=== PATIENT | female | born 2000 | race Caucasian/White ===

== ENCOUNTER → 2020-07-02 08:47 | Outpatient (BNVA) | payer SELFPAY | PROVIDERS: PCP Pediatrics; Visit Provider Dietitian, Registered | DX: Z76.89 Persons encountering health services in other specified circumstances (principal) ==

== ENCOUNTER → 2020-07-06 11:06 | Outpatient (BNVA) | payer OTHER, SELFPAY | PROVIDERS: PCP Pediatrics; Referring Provider Pediatrics; Visit Provider Surgery | DX: Z76.89 Persons encountering health services in other specified circumstances (principal) ==

== ENCOUNTER → 2020-07-20 13:20 | Outpatient (BNVA) | payer OTHER, SELFPAY | PROVIDERS: PCP Pediatrics; Visit Provider Dietitian, Registered | DX: Z76.89 Persons encountering health services in other specified circumstances (principal) ==

== ENCOUNTER → 2020-08-25 08:30 | Outpatient (BNVA) | payer OTHER, SELFPAY | PROVIDERS: Visit Provider Dietitian, Registered | DX: Z76.89 Persons encountering health services in other specified circumstances (principal) ==

== ENCOUNTER → 2020-08-30 08:23 | Outpatient (BNVA) | payer OTHER, SELFPAY | PROVIDERS: PCP Pediatrics; Visit Provider Dietitian, Registered | DX: Z76.89 Persons encountering health services in other specified circumstances (principal) ==

== ENCOUNTER → 2020-09-13 08:12 | Outpatient (BNVA) | payer SELFPAY | PROVIDERS: PCP Pediatrics; Visit Provider Dietitian, Registered | DX: Z76.89 Persons encountering health services in other specified circumstances (principal) ==

== ENCOUNTER → 2020-09-27 08:18 | Outpatient (BNVA) | payer SELFPAY | PROVIDERS: PCP Pediatrics; Visit Provider Dietitian, Registered | DX: Z76.89 Persons encountering health services in other specified circumstances (principal) ==

== ENCOUNTER → 2020-10-11 08:18 | Outpatient (BNVA) | payer OTHER, SELFPAY | PROVIDERS: PCP Pediatrics; Visit Provider Physician Assistant ==

== ENCOUNTER → 2021-01-06 08:12 | Outpatient (BNVA) | payer OTHER, SELFPAY | PROVIDERS: PCP Pediatrics; Visit Provider Dietitian, Registered | DX: E66.9 Obesity, unspecified (principal); Z68.36 Body mass index [BMI] 36.0-36.9, adult | CPT/HCPCS: 97803 ==

== ENCOUNTER → 2021-01-20 08:15 | Outpatient (BNVA) | payer OTHER, SELFPAY | PROVIDERS: PCP Pediatrics; Visit Provider Dietitian, Registered | DX: E66.9 Obesity, unspecified (principal) | CPT/HCPCS: 97803 ==

== ENCOUNTER → 2021-02-28 13:03 | Outpatient (BNVA) | payer OTHER, SELFPAY | PROVIDERS: PCP Pediatrics; Visit Provider Physician Assistant ==

== ENCOUNTER → 2021-03-09 08:08 | Outpatient (BNVA) | payer OTHER, SELFPAY | PROVIDERS: PCP Pediatrics; Visit Provider Physician Assistant ==

== ENCOUNTER → 2021-03-24 10:20 | Outpatient (BNVA) | payer OTHER, SELFPAY | PROVIDERS: PCP Pediatrics; Referring Provider Pediatrics; Visit Provider Surgery ==

== ENCOUNTER → 2021-04-08 13:41 | Outpatient (BNVA) | payer OTHER, SELFPAY | PROVIDERS: PCP Pediatrics; Visit Provider Physician Assistant ==

== ENCOUNTER 2021-04-20 14:00 | Inpatient (IN) | payer OTHER, SELFPAY ==
[2021-04-07 14:36] VITALS: BMI 35.4
[2021-04-08 17:46] LABS: MANUAL DIFF FLAG NO
[2021-04-08 17:50] LABS: Basophils Absolute Auto 0.1 X10*3/uL (0.0-0.2); Basophils Percent Auto 0.8 % (0-2); Eosinophils Absolute Auto 0.4 X10*3/uL (0.0-0.4); Eosinophils Percent Auto 5.2 % (0-4); Hematocrit 40.9 % (37-47); Hemoglobin 13.4 g/dl (12.0-16.0); Imm Gran Abs Auto 0.02 X10*3/uL (0.00-0.03); Imm Gran Pct Auto 0.3 % (0.0-0.4); Lymphocytes Absolute Auto 1.9 X10*3/uL (1.2-4.9); Lymphocytes Percent Auto 24.9 % (20-40); Mean Corpuscular HGB Conc 32.8 g/dl (31.0-35.0); Mean Corpuscular Volume 88.5 fL (80-98); Mean Platelet Volume 12.2 fL (9.4-12.3); Monocytes Absolute Auto 0.6 X10*3/uL (0.1-1.2); Monocytes Percent Auto 7.5 % (2-11); Neutrophils Absolute Auto 4.6 X10*3/uL (2.0-8.3); Neutrophils Percent Auto 61.3 % (45-73); Platelet Count 228 X10*3/uL (160-400); Red Blood Count 4.62 X10*6/uL (4.20-5.50); Red Cell Distribution Width 12.9 % (11.0-16.0); White Blood Count 7.5 X10*3/uL (4.8-10.8)
[2021-04-08 18:15] LABS: Albumin Level 4.3 g/dL (3.5-5.0); Anion Gap 13 (12-20); Blood Urea Nitrogen 9 mg/dL (9-16); Calcium 9.6 mg/dL (8.4-10.2); Carbon Dioxide 23 mmol/L (22-29); Chloride 108 mmol/L (96-108); Creatinine Clr Calc Pharmacy 159.8; Estimated Glomerular Filt Rate > 60; Glucose Random 75 mg/dL (60-115); Potassium 4.1 mmol/L (3.3-5.1); Sodium 140 mmol/L (135-145)
--- NOTE | 2021-04-19 09:18 | P.CONAN_ITS ---
Documented by User: Abbie Jaelyn 04/19/21 09:23 HPI - Anesthesia Eval Consult details Narrative: 20yo F for Gastrectomy Sleeve, EGD, Poss Diaphragmatic Hernia, Poss Ventral Hernia, Poss open *Upper front teeth bonded* PMFSH Active Problems Active Problems: All Active Problems (Updated 04/08/21 @ 16:00 by Kayy Jauregui MD) Obesity (Acute) BMI 35.0-35.9,adult (Acute) Shortness of breath (Acute) Preoperative examination (Acute) Binge eating disorder (Acute) History of ADHD (Acute) Anxiety (Acute) Depression (Acute) Past Medical History Medical History Anxiety COVID-19 vaccine administered Depression History of Lyme disease Obesity (BMI 30-39.9) Sleep apnea Family History Family History Father HTN (hypertension) Sleep apnea Obese Mother Multiple sclerosis RA (rheumatoid arthritis) Brother No problems noted. Maternal Grandmother H/O lymph node biopsy Surgical History Surgical History H/O wisdom tooth extraction Social History Social History Household Members: Other Household Members Other:: roommate Are you a primary careers adviser to a significant other at home: No Do you presently have visiting nurse or other home services: No Alcohol intake: current Alcohol intake frequency: holidays/special occasions only Patient Tobacco Use Status: Former Tobacco user Quit Date: 03/10/21 Tobacco use type: Cigarette Years Smoked: 4 Substance Use Type: Marijuana Substance Use Frequency: Daily Last Used Substance Other:: advised to hold marijuana 3-5 days pre-op Have you been hit, kicked, punched, or otherwise hurt by someone within the past year? If so, by whom?: No Recently lost weight without trying: No Eating poorly because of decreased appetite: No Nutrition Risks: No Nutritional Risk Patient : No (taking BCP) FDLMP: 03/21/21 : No Visits dentist regularly: Yes (has upper front bonded teeth) Poor oral hygiene: No Meds Allergies Allergy/AdvReac Type Severity Reaction Status Date / Time latex Allergy Intermediate localized Verified 04/08/21 16:16 swelling (condom) Home Medications Medication Instructions Recorded Confirmed Last Taken Type bupropion HCl 150 mg 24 hr tablet, 150 mg PO QAM 07/06/20 04/08/21 04/20/21 07:15 History extended release drospirenone 3 mg-ethinyl 1 tab PO DAILY 07/06/20 04/08/21 Unknown History estradiol 0.02 mg tablet ibuprofen 600 mg tablet 600 mg PO Q6H PRN 07/06/20 04/08/21 Unknown History biotin 5,000 mcg sublingual tablet 5,000 mcg SUBLINGUAL DAILY 04/07/21 04/08/21 Unknown History cranberry 500 mg capsule 500 mg PO BID 04/07/21 04/08/21 Unknown History magnesium 1 tab PO DAILY 04/07/21 04/08/21 Unknown History Exam Exam Date and Time: April 19, 2021 0918 Height,Weight and Vital Signs: Height 5 ft 7 in Weight 102.693 kg Pertinent Lab Results Pertinent Lab Results: Laboratory Tests 04/08/21 04/08/21 04/08/21 16:25 16:25 16:25 WBC 7.5 RBC 4.62 Hgb 13.4 Hct 40.9 MCV 88.5 MCH 29.0 MCHC 32.8 RDW 12.9 Plt Count 228 MPV 12.2 Immature Gran % (Auto) 0.3 Neut % (Auto) 61.3 Lymph % (Auto) 24.9 Morrill % (Auto) 7.5 Eos % (Auto) 5.2 H Baso % (Auto) 0.8 Lymph # (Auto) 1.9 Morrill # (Auto) 0.6 Eos # (Auto) 0.4 Baso # (Auto) 0.1 Abs Immat Gran (auto) 0.02 Absolute Neuts (auto) 4.6 Absolute Nucleated RBC 0.000 Nucleated RBC % (auto) 0.0 Sodium 140 Potassium 4.1 Chloride 108 Carbon Dioxide 23 Anion Gap 13 BUN 9 Creatinine 0.68 Estim Creat Clear Calc 159.8 Estimated GFR > 60 Random Glucose 75 Calcium 9.6 Albumin 4.3 Blood Type O Positive Antibody Screen NEGATIVE Narrative Narrative: EKG 02/2021 SR with Marked SA @ 65 Otherwise normal No change from previous EKG 11/2020 Assessment and Plan Assessment Anesthesia Assessment: Chart Reviewed Documented by User: Stacy Pro 04/20/21 09:53 [facility] Past Medical History Medical History Anxiety COVID-19 vaccine administered Depression History of Lyme disease Obesity (BMI 30-39.9) Sleep apnea Family History Family History Father HTN (hypertension) Sleep apnea Obese Mother Multiple sclerosis RA (rheumatoid arthritis) Brother No problems noted. Maternal Grandmother H/O lymph node biopsy Surgical History Surgical History H/O wisdom tooth extraction Social History Social History Household Members: Other Household Members Other:: roommate Are you a primary careers adviser to a significant other at home: No Do you presently have visiting nurse or other home services: No Alcohol intake: current Alcohol intake frequency: holidays/special occasions only Patient Tobacco Use Status: Former Tobacco user Quit Date: 03/10/21 Tobacco use type: Cigarette Years Smoked: 4 Substance Use Type: Marijuana Substance Use Frequency: Daily Last Used Substance Other:: advised to hold marijuana 3-5 days pre-op Have you been hit, kicked, punched, or otherwise hurt by someone within the past year? If so, by whom?: No Recently lost weight without trying: No Eating poorly because of decreased appetite: No Nutrition Risks: No Nutritional Risk Patient : No (taking BCP) FDLMP: 03/21/21 : No Visits dentist regularly: Yes (has upper front bonded teeth) Poor oral hygiene: No Meds Allergies Allergy/AdvReac Type Severity Reaction Status Date / Time latex Allergy Intermediate localized Verified 04/08/21 16:16 swelling (condom) Home Medications Medication Instructions Recorded Confirmed Last Taken Type bupropion HCl 150 mg 24 hr tablet, 150 mg PO QAM 07/06/20 04/08/21 04/20/21 07:15 History extended release drospirenone 3 mg-ethinyl 1 tab PO DAILY 07/06/20 04/08/21 Unknown History estradiol 0.02 mg tablet ibuprofen 600 mg tablet 600 mg PO Q6H PRN 07/06/20 04/08/21 Unknown History biotin 5,000 mcg sublingual tablet 5,000 mcg SUBLINGUAL DAILY 04/07/21 04/08/21 Unknown History cranberry 500 mg capsule 500 mg PO BID 04/07/21 04/08/21 Unknown History magnesium 1 tab PO DAILY 04/07/21 04/08/21 Unknown History Exam Airway Mallampati Class: II TM Dist: >3cm Neck ROM: Full Loose/Missing/Broken Teeth: No Heart: RRR Lungs: CTA Assessment and Plan Final Anesthetic Review NPO: Yes ASA Class: II Final Preanesthetic Review: Meds/Allgs Chart Reviewed, Consent Obtained/Reviewed and Anes Risks/Benef Reviewed Patient Risk: Low Procedure Risk: Intermediate Anesthetic Plan Anesthetic Plan: GA Disposition: Standard PACU
--- NOTE | 2021-04-19 12:58 | MHC.SHP ---
Pre-Procedural Eval Section A Date of Service: 04/19/21 Section B Chief Complaint: Morbid Severe Obesity Allergies: Allergies Allergy/AdvReac Type Severity Reaction Status Date / Time latex Allergy Intermediate localized Verified 04/08/21 16:16 swelling (condom) Plan I have reviewed the history and physical and performed a pertinent physical examination on my patient. No changes have occurred unless specified.
[2021-04-20] VITALS (16 sets, daily range): BP systolic 92–143; BP diastolic 53–85; PULSE 50–82; RESP 14–18; TEMP 35.8–36.6; O2SAT 98–100
[2021-04-20 09:22] LABS: COVID-19 Test Negative (Negative)
[2021-04-20] MEDS: Lactated Ringers 1,000 ML 100 ML IVCONT (09:22)
--- NOTE | 2021-04-20 09:22 | PC.NURSE ---
URINE IS NEGATIVE PER PAPERWORK FROM 04/15/2021 [facility]. IN CHART
--- NOTE | 2021-04-20 09:29 | PC.NURSE ---
MD DEWITT AWARE OF PATIENTS HEART RATE DROPPING WHILE SHE SLEEPS AND BP. ASYMPTOMATIC.
--- NOTE | 2021-04-20 09:45 | P.CONAN_ITS ---
FORMERLY [facility] Active Problems Active Problems: All Active Problems (Updated 04/08/21 @ 16:00 by Kayy ramos MD) Obesity (Acute) BMI 35.0-35.9,adult (Acute) Shortness of breath (Acute) Preoperative examination (Acute) Binge eating disorder (Acute) History of ADHD (Acute) Anxiety (Acute) Depression (Acute) Past Medical History Medical History Anxiety COVID-19 vaccine administered Depression Hiatal hernia History of Lyme disease History of seizure Obesity (BMI 30-39.9) Sleep apnea Family History Family History Father HTN (hypertension) Sleep apnea Obese Mother Multiple sclerosis RA (rheumatoid arthritis) Brother No problems noted. Maternal Grandmother H/O lymph node biopsy Surgical History Surgical History H/O wisdom tooth extraction History of repair of hiatal hernia S/P laparoscopic sleeve gastrectomy Social History Social History Household Members: Other Household Members Other:: roommate Are you a primary care manager to a significant other at home: No Do you presently have visiting nurse or other home services: No Alcohol intake: current Alcohol intake frequency: holidays/special occasions only Patient Tobacco Use Status: Former Tobacco user Quit Date: 03/10/21 Tobacco use type: Cigarette Years Smoked: 4 Substance Use Type: Marijuana service: No Current occupational status: employed Meds Allergies Allergy/AdvReac Type Severity Reaction Status Date / Time latex Allergy Intermediate localized Verified 05/05/21 14:36 swelling (condom) Active Medications: Current Medications Generic Name Dose Route Start Last Admin Trade Name Freq PRN Reason Stop Dose Admin Albuterol Sulfate 2.5 mg 04/20/21 07:14 Albuterol Sulfate (0.083%) 2.5 Mg/3 Ml Vial.Neb INHALE ONCE PRN Shortness of Breath/Wheezing Lactated Ringer's 1,000 mls @ 100 mls/hr 04/20/21 07:15 04/20/21 09:22 Lr IVCONT 100 mls/hr .Q10H JORGE L Administration Home Medications Medication Instructions Recorded Confirmed Last Taken Type bupropion HCl 150 mg 24 hr tablet, 150 mg PO QAM 07/06/20 05/05/21 04/20/21 07:15 History extended release drospirenone 3 mg-ethinyl 1 tab PO DAILY 07/06/20 05/05/21 Unknown History estradiol 0.02 mg tablet cranberry 500 mg capsule 500 mg PO BID 04/07/21 05/05/21 Unknown History magnesium 1 tab PO DAILY 04/07/21 05/05/21 Unknown History calcium citrate 1,000 mg tablet 1,000 mg PO DAILY 05/05/21 05/05/21 Unknown History hahwgxty-znezarrx-hcye 45 mg-folic 1 cap PO DAILY cap 05/05/21 05/05/21 Unknown History acid 800 mcg-vit K 120 mcg capsule (Bariatric Multivitamins) Exam Exam Date and Time: April 20, 2021 0945 Height,Weight and Vital Signs: Height 5 ft 7 in Weight 102.693 kg Last Vital Signs Temp 97.3 F 04/20/21 09:10 Pulse 50 04/20/21 09:27 Resp 16 04/20/21 09:27 BP 104/66 04/20/21 09:27 Pulse Ox 98 04/20/21 09:10 Pertinent Lab Results Pertinent Lab Results: Laboratory Tests 04/08/21 04/08/21 04/08/21 16:25 16:25 16:25 WBC 7.5 RBC 4.62 Hgb 13.4 Hct 40.9 MCV 88.5 MCH 29.0 MCHC 32.8 RDW 12.9 Plt Count 228 MPV 12.2 Immature Gran % (Auto) 0.3 Neut % (Auto) 61.3 Lymph % (Auto) 24.9 Dane % (Auto) 7.5 Eos % (Auto) 5.2 H Baso % (Auto) 0.8 Lymph # (Auto) 1.9 Dane # (Auto) 0.6 Eos # (Auto) 0.4 Baso # (Auto) 0.1 Abs Immat Gran (auto) 0.02 Absolute Neuts (auto) 4.6 Absolute Nucleated RBC 0.000 Nucleated RBC % (auto) 0.0 Sodium 140 Potassium 4.1 Chloride 108 Carbon Dioxide 23 Anion Gap 13 BUN 9 Creatinine 0.68 Estim Creat Clear Calc 159.8 Estimated GFR > 60 Random Glucose 75 Calcium 9.6 Albumin 4.3 COVID-19 ([facility]) COVID-19 Clin Com Blood Type O Positive Antibody Screen NEGATIVE 04/20/21 08:57 WBC RBC Hgb Hct MCV MCH MCHC RDW Plt Count MPV Immature Gran % (Auto) Neut % (Auto) Lymph % (Auto) Dane % (Auto) Eos % (Auto) Baso % (Auto) Lymph # (Auto) Dane # (Auto) Eos # (Auto) Baso # (Auto) Abs Immat Gran (auto) Absolute Neuts (auto) Absolute Nucleated RBC Nucleated RBC % (auto) Sodium Potassium Chloride Carbon Dioxide Anion Gap BUN Creatinine Estim Creat Clear Calc Estimated GFR Random Glucose Calcium Albumin COVID-19 ([facility]) Negative COVID-19 Clin Com See Note Blood Type Antibody Screen Assessment and Plan Assessment Anesthesia Assessment: Anesthesia Plan Discussed (Only looked at chart, never evaluated patient)
[2021-04-20] MEDS: Midazolam HCl/PF 2 MG/2 ML VIAL IVPUSH (10:48)
--- NOTE | 2021-04-20 10:56 | PC.NURSE ---
PATIENT BECAME VERY ANXIOUS AFTER LETTING HER KNOW IT WOULD BE ANOTHER 45 MINUTES. VERSED 1MG GIVEN ONLY DID NOT WNT THE SECOND HALF OF THE ORDERED DOSE. APPLIED 2L NC AND REMAINS ON IT HELP DESK MANAGER AND O2 SAT MONITOR. DECREASED ANXIETY CONT TO MONITOR.
[2021-04-20] MEDS: HYDROmorphone HCl 0.5 MG/0.5 ML SYRINGE IVPUSH ×3 (13:56→14:37)
--- NOTE | 2021-04-20 14:01 | P.BOP_ITS ---
Brief Operative Note Date of Service: 04/20/21 Pre-op diagnosis: Obesity class 2, BMI 35.7, sleep apnea Post-op diagnosis: other (Same and hiatal hernia) Procedure: Laparoscopic sleeve gastrectomy, hiatal hernia repair, intraoperative endoscopy, and Sha block Implants: covidien arnol Surgeon: Kayy Jauregui MD Anesthesia: GETA Was an Distribution System Operator used for this Procedure?: Yes Distribution System Operator: Humaira Rico Estimated blood loss (mL): 10 Pathology: other (Partial gastrectomy) Condition: stable Disposition: PACU
--- NOTE | 2021-04-20 14:03 | P.OP_ITS ---
Operative Note Operative Note Date of Service: 04/20/21 Narrative: Patient was brought into the operating room and placed on the operating room table in the supine position. General anesthesia was induced. Normal DVT prophylaxis was instituted and the patient received 2 grams of cefotetan preoperatively. The abdomen was then prepped and draped in the normal sterile fashion. A safety time-out was performed. A mixture of 1% lidocaine with epinephrine and ??% Marcaine plain was used to a nesthetize the planned incision site in the left upper quadrant. A #11 scalpel was used to make a 5 mm left upper quadrant transverse incision through which a veress needle was placed. Three pops were heard going through the fascia. A saline drop test was used to confirm that the veress needle was intraabdominal. An optiview technique was then used to place a 5mm port in the left upper quadrant. A 5 mm 30 degree laproscope was then placed through this port and the abdominal cavity was surveyed and was normal. The patient was placed in reverse Trendelenburg positioning. A diamond liver retractor was then placed in the subxyphoid position and it was used to hold up the left lobe of the liver to the abdominal wall. This was secured to the bed using the liver retractor hays. A JAIDEN block was then performed for pain control on the right side of the abdomen. A 5 mm port was placed in the right upper quadrant near the falciform ligament. A 12 mm port was then placed in the mid epigastrium. One additional 5 mm port was placed in the left upper quadrant just to the left of the placement of the first port. I then performed a JAIDEN block on the left side of the abdomen. I then removed the epigastric fat pad; there was a small anterior hiatal hernia noted. I reapproximated the left and right crura with a total of 2 stitches of 2-0 ethibond and a laparoscopic knot pusher. There was no residual hiatal hernia. I then opened up the angle of His. We then gained entry into the lesser sac about 4-5 cm from the pylorus. I had anesthesia place a 34 Maldivian orogastric tube into the distal antrum to use as a sizing tool for gastric pouch size. I divided the short gastric vessels up to the angle of His. We then started the creation of the gastric pouch by firing a 60 mm purple load endostapler up the stomach about 4-5 cm from the pylorus. We completed the creation of the gastric pouch using a total of 4 firings of a 60 mm and 1 firing of a 45 mm purple load stapler. We had anesthesia remove the orogastric tube, then we clamped across the distal antrum using a fired 60 mm endostapler. We flattened the patient and then instilled normal saline surrounding the newly created staple line. I then performed an on-table endoscopy. I passed the gastroscopy into the posterior oropharynx and down the esophagus evaluating the esophageal mucosa which was normal. There was no evidence of hiatal hernia. I passed the gastroscope into the gastric pouch and insufflated the gastric pouch. There was healthy pink mucosa and no evidence of active bleeding. There was no evidence of leak on laparosc opy. I desufflated the gastric pouch and removed the endoscope. I removed the endostapler from the abdomen and suctioned the fluid from the left upper quadrant. I then removed the partial gastrectomy specimen through the epigastric 12 mm port site. I reapproximated the 12 mm port using a 0 maxon suture with a laparoscopic suture passer. I instilled local anesthetic into the fascial closure site and tied the suture down at a pressure of 8-10 mm of Hg. There was no residual fascial defect. We removed the liver retractor and the left upper quadrant 5 mm ports under direct visualization. There was no evidence of any active bleeding. I desufflated the abdomen through the last remaining port and removed the laparoscope and 5 mm port. We reapproximated all incisions with a 4-0 monocryl subcuticular stitch. We cleaned and dried the abdominal skin and applied dermabond skin glue. All count were correct at the end of the case. The patient was awake and in stable condition prior to extubation and transfer to the recovery room.
--- NOTE | 2021-04-20 14:07 | PM.PNGS ---
Subjective Subjective Date of Service: 04/21/21 Interval history: Pod #1 s/p LSG/HH repair. Doing well. Tolerating stage 3 diet, ambulating in hallway. Pain well controlled. Denies nausea or vomiting. Vitals and labs reviewed and are within limit for post op day 1. On exam, patient is well appearing, abdomen is soft, nd, mild appropriate incisional tenderness. Incisions c/d/i with dermabond in place. Plan: d/c home today. Follow up with Dr. Jauregui in 2 weeks. Physical Exam Vital Signs: Vital Signs: Last Vital Signs Temp 97.3 F 04/20/21 09:10 Pulse 68 04/20/21 10:43 Resp 16 04/20/21 10:43 BP 97/68 04/20/21 10:43 Pulse Ox 98 04/20/21 10:43 Body Mass Index 35.4 Procedures Date of Service Date of Service: 04/21/21 Progress Note: A&P Assessment and plan (1) Obesity: Status: Acute (2) Hiatal hernia: Status: Acute (3) History of repair of hiatal hernia: Status: Acute (4) S/P laparoscopic sleeve gastrectomy: Status: Acute Assessment and Plan: POD #1: Patient is doing well and will be discharged home today. All the discharge instructions were reviewed with the patient and given in writing. Patient will follow up as scheduled in 2 weeks. Fall Risk Details Current Medications: Current Medications Generic Name Dose Route Start Last Admin Trade Name Freq PRN Reason Stop Dose Admin Albuterol Sulfate 2.5 mg 04/20/21 07:14 Albuterol Sulfate (0.083%) 2.5 Mg/3 Ml Vial.Neb INHALE ONCE PRN Shortness of Breath/Wheezing Albuterol Sulfate 2.5 mg 04/20/21 09:53 Albuterol Sulfate (0.083%) 2.5 Mg/3 Ml Vial.Neb INHALE ONCE PRN Wheezing Bupropion HCl 150 mg 04/21/21 08:00 Bupropion Hcl Xl 150 Mg Tab.Er.24h PO DAILY@0800 JORGE L Famotidine 20 mg 04/20/21 21:00 Famotidine/Pf 20 Mg/2 Ml Vial IVPUSH BID JORGE L Fentanyl 50 mcg 04/20/21 09:53 Fentanyl Citrate/Pf 100 Mcg/2 Ml Vial IVPUSH Q5M PRN Pain, Severe (Pain Scale 7-10) Fentanyl 25 mcg 04/20/21 09:53 Fentanyl Citrate/Pf 100 Mcg/2 Ml Vial IVPUSH Q5M PRN Pain, Moderate (Pain Scale 4-6 Hydromorphone HCl 0.5 mg 04/20/21 09:53 04/20/21 14:03 Hydromorphone Hcl 0.5 Mg/0.5 Ml Syringe IVPUSH 0.5 mg Q5M PRN Administration Pain, Severe (Pain Scale 7-10) Hydromorphone HCl 0.25 mg 04/20/21 09:53 Hydromorphone Hcl 0.5 Mg/0.5 Ml Syringe IVPUSH Q5M PRN Pain, Severe (Pain Scale 7-10) Hydromorphone HCl 0.25 mg 04/20/21 14:00 Hydromorphone Hcl 0.5 Mg/0.5 Ml Syringe IVPUSH Q4H PRN Pain, Severe (Pain Scale 7-10) Lactated Ringer's 1,000 mls @ 100 mls/hr 04/20/21 07:15 04/20/21 09:22 Lr IVCONT 100 mls/hr .Q10H JORGE L Administration Promethazine HCl 6.25 mg/ 50.25 mls @ 201 mls/hr 04/20/21 09:53 04/20/21 13:54 Sodium Chloride IV 201 mls/hr ONCE PRN Administration Nausea and Vomiting Lactated Ringer's 1,000 mls @ 125 mls/hr 04/20/21 14:00 Lr IVCONT .Q8H JORGE L Cefotetan Disodium 2 gm/ 50 mls @ 100 mls/hr 04/20/21 14:00 Sodium Chloride IV 04/20/21 14:29 POSTOP ONE Acetaminophen 1,000 mg in 100 mls @ 16.7 mls/hr 04/20/21 14:00 Ofirmev IV .Q6H JORGE L Metoclopramide HCl 10 mg 04/20/21 14:00 Metoclopramide Hcl 10 Mg/2 Ml Vial IVPUSH Q6H PRN Nausea Ondansetron HCl 4 mg 04/20/21 09:53 04/20/21 13:52 Ondansetron Hcl 4 Mg/2 Ml Vial IVPUSH 4 mg ONCE PRN Administration Nausea and Vomiting Ondansetron HCl 4 mg 04/20/21 14:00 Ondansetron Hcl 4 Mg/2 Ml Vial IVPUSH Q8H JORGE L Oxycodone HCl 10 mg 04/20/21 09:53 Oxycodone Hcl Immed Release 5 Mg Tablet PO ONCE PRN Pain, Severe (Pain Scale 7-10) Sodium Chloride 3 ml 04/20/21 16:00 0.9 % Sodium Chloride Flush 3 Ml Syringe IVFLUSH QSHIFT JORGE L Time Spent With Patient Time: Total time spent is greater than 50% in coordination of care (as documented) at patient's floor/unit and/or counseling patient: Time with patient: 25 - 35 minutes Quality Stroke Does the patient have a stroke diagnosis?: No VTE Prior VTE?: No VTE Risk Level:: Surgical - low VTE Device Contraindication: N/A - Device Ordered VTE Drug Contraindication: N/A - Med Ordered
--- NOTE | 2021-04-20 14:08 | P.DS_ITS ---
DS: Providers Provider Date of Service: 04/21/21 Primary care physician: Ignacia Ramirez MD DS: Diagnosis Discharge Diagnosis (1) Obesity: Status: Acute (2) Hiatal hernia: Status: Acute (3) History of repair of hiatal hernia: Status: Acute (4) S/P laparoscopic sleeve gastrectomy: Status: Acute DS: Medications Discharge Medications Home Medications: Home Medications Medication Instructions Recorded Confirmed bupropion HCl 150 mg 24 hr tablet, 150 mg PO QAM 07/06/20 04/08/21 extended release drospirenone 3 mg-ethinyl 1 tab PO DAILY 07/06/20 04/08/21 estradiol 0.02 mg tablet ibuprofen 600 mg tablet 600 mg PO Q6H PRN 07/06/20 04/08/21 biotin 5,000 mcg sublingual tablet 5,000 mcg SUBLINGUAL DAILY 04/07/21 04/08/21 cranberry 500 mg capsule 500 mg PO BID 04/07/21 04/08/21 magnesium 1 tab PO DAILY 04/07/21 04/08/21 Previous Rx's Medication Instructions Recorded acetaminophen 500 mg tablet 1,000 mg PO Q6H PRN #30 tab 04/18/21 (Tylenol Extra Strength) docusate sodium 100 mg capsule 100 mg PO BID #30 cap 04/18/21 (Colace) famotidine 20 mg tablet (Pepcid AC) 20 mg PO DAILY #30 tab 04/18/21 ondansetron HCl 4 mg tablet 4 mg PO Q6H PRN #30 tab 04/18/21 (Zofran) simethicone 80 mg chewable tablet 80 mg PO TID-QID PRN #30 tab 04/18/21 (Gas Relief (simethicone)) DS: Summary Time Spent with Patient Time attestation: Total time spent providing and/or coordinating discharge services: Discharge coordination time: Greater than 30 minutes Quality: Stroke Does the patient have a stroke diagnosis?: No Physical Exam Vital Signs: Vital Signs: Last Vital Signs Temp 97.9 F 04/20/21 13:48 Pulse 79 04/20/21 13:48 Resp 14 04/20/21 13:48 BP 121/77 04/20/21 13:48 Pulse Ox 100 04/20/21 13:48 Body Mass Index 35.4 DS: Data Data Completed and Pending Pending studies at discharge: Pending at discharge 04/20/21 13:26 Surgical [PTH] Routine Labs on day of discharge: Laboratory Results - last 24 hr 04/20/21 08:57 COVID-19 ([facility]) Negative COVID-19 Clin Com See Note Discharge Plan Discharge Patient Disposition: Home, Self-Care Discharge Diagnosis: obesity s/p LSG and HH repair Referrals: Ignacia Ramirez MD [Primary Care Provider] - 1 Week Discharge Medications: Continued acetaminophen [Tylenol Extra Strength] 500 mg tablet 1,000 mg PO Q6H PRN (Reason: pain) Qty: 30 RF: 1 docusate sodium [Colace] 100 mg capsule 100 mg PO BID Qty: 30 RF: 1 famotidine [Pepcid AC] 20 mg tablet 20 mg PO DAILY Qty: 30 RF: 1 ondansetron HCl [Zofran] 4 mg tablet 4 mg PO Q6H PRN (Reason: nausea and vomiting) Qty: 30 RF: 1 simethicone [Gas Relief (simethicone)] 80 mg tablet,chewable 80 mg PO TID-QID PRN (Reason: abdominal distention) Qty: 30 RF: 1 cranberry 500 mg Capsule 500 mg PO BID RF: 0 biotin 5,000 mcg Tablet, Sublingual 5,000 mcg SUBLINGUAL DAILY RF: 0 magnesium 1 tab PO DAILY RF: 0 bupropion HCl 150 mg tablet extended release 24 hr 150 mg PO QAM RF: 0 Held drospirenone-ethinyl estradiol 3-0.02 mg tablet 1 tab PO DAILY RF: 0 Hold Instructions: Resume on 05/06/21. Discontinued ibuprofen 600 mg tablet 600 mg PO Q6H PRN (Reason: pain) RF: 0 Diet: other Activity on Discharge: No heavy lifting Stand Alone Forms: Patient Portal Discharge page Activity Restrictions/Additional Instructions: Discharge Instructions 1. Please call your doctor or come back to the emergency room should any new symptoms arise. 2. You will receive a courtesy call from [facility] 24-48 hours after discharge. 3. Activity: abstain from alcohol, practice limited stair climbing, no bending, no driving, no exercise, no illicit substances, no lifting, no sex, no tub bath, no work. 4. Diet: continue stage 3 protein shakes until your [address] Jauregui. 5. Dressing Change/Wound Care: Your incision is covered by surgical glue. If the area is tender, you may apply an ice pack for short intervals (no more than 20 minutes on, followed by at least 20 minutes off). Do not apply heat. Do not use creams, lotions, or topical antibiotics unless instructed to do so by your surgeon. These can cause infection or allergic reaction. 6. Call your doctor if: - Your temperature exceeds 101.5 F - You experience excessive pain or swelling - You have an unexpected reaction to medication - You have excessive bleeding - You experience continued vomiting/nausea - Your incision begins to separate - Your incision shows signs of infection such as increased redness, swelling, excessive pain, heat, or drainage (light blood or clear fluid is normal) 7. General instructions: - No lifting greater than 5 lbs for the next 4 weeks. - No driving within 24 hours of taking narcotic pain medications. - If you do not move your bowels in the next 2 days, please take milk of magnesia over the counter. Please follow the post op diet and do not advance yo ur diet until you are seen in the office in about 2 weeks. - Please walk around your home every hour or two to prevent blood clots from forming in your legs. You do not need to wake from sleeping to walk. - Please sleep in a bed or couch to prevent kinking at the hips and knees. - Please take your incentive spirometer (your lung para operator) home with you and use it for the next few days to prevent pneumonias. - You may shower, no hot tubs, baths or swimming pools. - Please call the office with any questions or concerns such as increasing abdominal pain, fever, chills, shortness of breath, chest pain, leg pain or swelling, or redness or drainage from your incisions. - Please stay on stage 3 diet which includes sugar free clear liquids such as ice pops and jello and broth and crystal light. Avoid all carbonation. Please drink 3 protein shakes with at least 25-30 grams of protein daily or 3 of the Celebrate 4:1 shakes which can be purchased in our office. The Celebrate shakes have all of the bariatric vitamins you need if you consume these shakes. If you are drinking other protein shakes, you will need to purchase the Celebrate multivitamins and calcium that we provide in the office (they will provide all the vitamins you need). Please make sure you are consuming at least 40-60 ounces of water in addition to your 3 protein shakes daily. 8. Do not hesitate to contact the office with any questions at . The patient's medical history has been reviewed and they are considered low risk for post op DVT and therefore DVT prophylaxis is not considered necessary. Stevo schaeffer after surgery was reviewed. The patient has not disclosed any travel plans during the first 30 days after surgery and they have been advised that within the first 30 days after surgery any bus, plane, train or car travel over 2 hours in duration is contraindicated due to the possibility of developing blood clots from immobility. Any travel, needs to include periods of ambulation of 10 minute s in duration every 2 hours. The patient was instructed to discuss any plans for travel during this period with their bariatric surgeon. Discharge Summary Date of Service: 04/21/21 Pre-op diagnosis: Obesity class 2, BMI 35.7, sleep apnea Post-op diagnosis: other (Same and hiatal hernia) Procedure: Laparoscopic sleeve gastrectomy, hiatal hernia repair, intraoperative endoscopy, and Sha block Discharge Medications: 1. Simethicone 80mg tablet chewable (Si tablet every 6 hours orally for 7 days, #28, 1 RF) q4h prn gas 2. Acetaminophen 500 mg tablet (Si tablets as needed every 6 hours orally for 30 days, #240, 0 RF) 3. Ondansetron 4 mg tablet disintegrating (Si tablet every 6 hours orally for 7 days, #28, 1 RF) 4. Colace 100 mg capsule (Si capsule twice a day for 30 days, #60, 2 RF) 5. Pepcid 20 mg chewable tablet (Si tablet twice a day for 30 days, #60, 3 RF) Discharge Instructions: The patient should continue on the stage III bariatric diet, which includes 3 protein shakes of at least 20-30g of protein on a daily basis. The patient was encouraged to avoid drinking liquids with her protein shakes. They should wait 30-45 minutes in between her meals and drinking water. She should drink at least 40-60 ounces of water on a daily basis. They should ambulate while at home to avoid any blood clots in her lower extremities. They should call with any questions or concerns such as increase in abdominal pain, persistent nausea, vomiting, redness and drainage from her incisions, fever, chills, shortness of breast, or chest pain beyond what is normal for her. The patient should avoid all heavy lifting greater than 5 pounds for the next 4 weeks. The patient is already scheduled to follow up with me in 2 weeks time, but should call the office with any questions prior to that follow up appointment. The patient should not advance their diet until they are seen in the office for the 2 week appointment. Hospital Course: The patient was admitted after undergoing a [SURGERY]. They were started on stage II (1 oz of fluid every 15 minutes) on POD #0. The next morning they were evaluated and started on stage III diet (protein shakes). All labs were within normal limits. On post-operative day #1 she was feeling better, nausea and epigastric pain improved and they were tolerating stage III bariatric diet well. The patient was discharged home. Discharge Disposition: Home. Care Plan Goals: weight loss Health Concerns: obesity Plan of Treatment: LSG Assessment: stable POD #1
[2021-04-20] MEDS: Scopolamine 1.5 MG PATCH.TD.3 EAR-BEHIND (14:11)
[2021-04-20] MEDS: diphenhydrAMINE HCL 50 MG/ML VIAL 12.5 MG IVPUSH ×4 (14:15→23:38)
[2021-04-20] MEDS: Famotidine/PF 20 MG/2 ML VIAL IVPUSH ×2 (14:16→20:28)
[2021-04-20] MEDS: Metoclopramide HCl 10 MG/2 ML VIAL IVPUSH ×2 (14:25→20:28)
--- NOTE | 2021-04-20 16:18 | MHC.CM.PN ---
PATIENT IS FULLY INDEPENDENT NO DME OR VNA SERVICES IN THE HOME. PLAN WILL BE TO RETURN HOME WITH NO SERVICES. MOTHER (IN ROOM) WILL PROVIDE TRANSPORT AT TIME OF DISCHARGE. HCP WILL NEED TO BE REVISED TO INCLUDE THE SECOND WITNESS HCP CAN THEN BE ADDED TO [facility]. CASE MANAGEMENT FOLLOWING
[2021-04-20] MEDS: 0.9 % Sodium Chloride Flush 3 ML SYRINGE IVFLUSH (20:28)
[2021-04-20] MEDS: Lactated Ringers 1,000 ML 125 ML IVCONT (22:00)
[2021-04-20] MEDS: cefoTEtan disodium 2 GM in 0.9 % Sodium Chloride 50 ML IV (23:39)
[2021-04-21] VITALS: BP 123/85; PULSE 86; RESP 18; TEMP 37.1; O2SAT 100
[2021-04-21] MEDS: Metoclopramide HCl 10 MG/2 ML VIAL IVPUSH ×2 (02:46→09:03)
[2021-04-21 04:00] VITALS: BP 127/79; PULSE 58; RESP 16; TEMP 36.6; O2SAT 98
[2021-04-21] MEDS: diphenhydrAMINE HCL 50 MG/ML VIAL 12.5 MG IVPUSH (04:04)
--- NOTE | 2021-04-21 05:26 | PC.NURSE ---
pt vomited about 50 ml of clear/yellow liquid around 2029, pt received reglan and pepcid, iv benadryl was given an hour earlier. NGHIA Jordan is aware.
[2021-04-21] MEDS: Lactated Ringers 1,000 ML 125 ML IVCONT (06:12)
[2021-04-21 06:35] LABS: MANUAL DIFF FLAG NO
[2021-04-21 06:42] LABS: Basophils Percent Auto 0.1 % (0-2); Hematocrit 35.7 % (37-47); Hemoglobin 12.1 g/dl (12.0-16.0); Imm Gran Abs Auto 0.07 X10*3/uL (0.00-0.03); Imm Gran Pct Auto 0.5 % (0.0-0.4); Lymphocytes Absolute Auto 0.8 X10*3/uL (1.2-4.9); Lymphocytes Percent Auto 5.5 % (20-40); Mean Corpuscular HGB Conc 33.9 g/dl (31.0-35.0); Mean Corpuscular Hemoglobin 29.5 pg (27.0-33.0); Mean Corpuscular Volume 87.1 fL (80-98); Mean Platelet Volume 11.3 fL (9.4-12.3); Monocytes Percent Auto 7.5 % (2-11); Neutrophils Percent Auto 86.4 % (45-73); Platelet Count 225 X10*3/uL (160-400); Red Cell Distribution Width 12.9 % (11.0-16.0); White Blood Count 13.9 X10*3/uL (4.8-10.8)
[2021-04-21 07:11] LABS: Anion Gap 13 (12-20); Blood Urea Nitrogen 6 mg/dL (9-16); Calcium 9.5 mg/dL (8.4-10.2); Carbon Dioxide 24 mmol/L (22-29); Chloride 106 mmol/L (96-108); Creatinine Clr Calc Pharmacy 169.8; Estimated Glomerular Filt Rate > 60; Glucose Random 121 mg/dL (60-115); Potassium 3.9 mmol/L (3.3-5.1); Sodium 139 mmol/L (135-145)
[2021-04-21] MEDS: Famotidine/PF 20 MG/2 ML VIAL IVPUSH (07:39)
[2021-04-21 08:00] VITALS: BP 140/63; PULSE 53; RESP 18; TEMP 36.9; O2SAT 100
--- NOTE | 2021-04-21 08:07 | HO.POSTANES ---
Post Anesthesia Evaluation Post Anesthesia Evaluation Vital Signs: Vital Signs Temp Pulse Resp BP Pulse Ox 04/21/21 08:00 98.5 F 53 18 140/63 H 100 04/21/21 04:00 97.8 F 58 16 127/79 98 04/21/21 00:00 98.7 F 86 18 123/85 100 Anesthesia: General Endotracheal-GETA Mental Status: Awake Pain Control: Satisfactory Nausea/Vomiting: Mild Hydration: Adequate Anesthesia-Related Issues: No Anes. Related Issues
[2021-04-21] MEDS: dexAMETHasone sod phosphate 4 MG/ML VIAL IVPUSH (09:42)
[2021-04-21 12:00] VITALS: BP 124/80; PULSE 86; RESP 18; TEMP 36.7; O2SAT 98
== END 2021-04-21 12:57 | disposition home or self-care (01) | DRG 621 ==
LOC: HO.S3 14:38
PROVIDERS: Physician Assistant; Admitting Provider Surgery; PCP Pediatrics; Visit Provider Surgery
PROC: 0DB64Z3 Excision of Stomach, Percutaneous Endoscopic Approach, Vertical (ICD-10-PCS; CPT 43845; principal; 2021-04-20 12:00)
DX: E66.01 Morbid (severe) obesity due to excess calories (principal); Z68.35 Body mass index [BMI] 35.0-35.9, adult; K44.9 Diaphragmatic hernia without obstruction or gangrene; G47.30 Sleep apnea, unspecified; Z20.822 Contact with and (suspected) exposure to COVID-19; Z87.891 Personal history of nicotine dependence; Z79.899 Other long term (current) drug therapy
CPT/HCPCS: 36415; 80048; 82040; 85025; 86850; 86900; 86901; 87635; 88307; 88342; C1776; J0131; J1100; J1170; J1200; J2250; J2405; J2550; J2765; J3010

== ENCOUNTER 2021-04-29 20:15 | Emergency (ER) | payer OTHER, SELFPAY ==
[2021-04-29 20:16] VITALS: BP 83/65; PULSE 78; RESP 16; TEMP 36.7; O2SAT 99; BMI 33.6
[2021-04-29 20:40] VITALS: BP 106/84; PULSE 84; RESP 18; O2SAT 98
[2021-04-29] MEDS: 0.9 % Sodium Chloride 1,000 ML 999 ML IV (20:55)
--- NOTE | 2021-04-29 21:04 | PC.NURSE ---
clients iv established, seizure precautions in place. client is recieving IV fluids. Unable to obtain labs due to client being dehydrated. PCT aware that straight stick labs will need to obtained. Client does not have seizure hx, two witnessed seizures at home. client post gastric sleeve surgery x 1 week, unable to tolerate PO.
--- NOTE | 2021-04-29 22:04 | ED.SEIZURE ---
HPI - Seizure General Chief Complaint: Seizure Stated Complaint: seizures Time Seen by Provider: 04/29/21 20:39 Source: patient and family Mode of arrival: ambulatory Limitations: no limitations History of Present Illness HPI Narrative: 20-year-old female status post gastric sleeve on 05/21, with past medical history of obesity, ADHD, anxiety, depression, and history of seizures presents with 2 myoclonic seizures that were witnessed by family, last seizure at 8:00 p.m.. Patient states that she has had seizures before in the past, typically occurs when she is dehydrated or smoking marijuana. She has not been on any prior antiseizure medications. She did contact Dr. Verdin, who performed her gastric bypass surgery on 05/21, and was referred to the emergency department for evaluation. At this time patient does not report any concerning symptoms, states that she received the wrong discharge instructions for p.o. intake status post gastric sleeve. She feels that she is dehydrated, and presents with her mother at bedside she denies chest pain or pressure, palpitations, abdominal pain, abdominal distention, dysuria, hematuria, nausea, vomiting, diarrhea, constipation, inability to pass flatus, or any other concerning symptoms. MD complaint: seizure Onset (ago): hour(s) (Several hours prior to arrival) Witnessed: Yes - by Bystander Trauma: No Seizure History: Yes Place: Home Associated symptoms: denies other symptoms Treatments prior to arrival: none Related Data Home Medications Medication Instructions Recorded Confirmed bupropion HCl 150 mg 24 hr tablet, 150 mg PO QAM 07/06/20 04/08/21 extended release drospirenone 3 mg-ethinyl 1 tab PO DAILY 07/06/20 04/08/21 estradiol 0.02 mg tablet biotin 5,000 mcg sublingual tablet 5,000 mcg SUBLINGUAL DAILY 04/07/21 04/08/21 cranberry 500 mg capsule 500 mg PO BID 04/07/21 04/08/21 magnesium 1 tab PO DAILY 04/07/21 04/08/21 Previous Rx's Medication Instructions Recorded acetaminophen 500 mg tablet 1,000 mg PO Q6H PRN #30 tab 04/18/21 (Tylenol Extra Strength) docusate sodium 100 mg capsule 100 mg PO BID #30 cap 04/18/21 (Colace) famotidine 20 mg tablet (Pepcid AC) 20 mg PO DAILY #30 tab 04/18/21 ondansetron HCl 4 mg tablet 4 mg PO Q6H PRN #30 tab 04/18/21 (Zofran) simethicone 80 mg chewable tablet 80 mg PO TID-QID PRN #30 tab 04/18/21 (Gas Relief (simethicone)) Allergies Allergy/AdvReac Type Severity Reaction Status Date / Time latex Allergy Intermediate localized Verified 04/29/21 20:28 swelling (condom) Review of Systems Review of Systems: Constitutional: Positive seizure, No Fever, No Chills ENT/Mouth: No Ear Pain, No Hoarseness, No sore throat Eyes: No Eye Pain, No Swelling, No Redness, No Foreign Body Cardiovascular: No Chest Pain, No SOB Respiratory: No Cough, No Dyspnea Gastrointestinal: No Nausea, No Vomiting, No Diarrhea, No abdominal Pain Genitourinary: No Dysuria, No Hematuria Musculoskeletal: No joint pain, No Myalgias, No Joint Swelling Skin: No Skin lacerations, No rash Neuro: No Weakness, No Numbness, No Paresthesias, No Loss of Consciousness, No Dizziness, No Headache Psych: No Anxiety/Panic, No Depression Heme/Lymph: no easy bruising, no Lymphadenopathy Endocrine: No Polyuria, No Polydipsia Yes all other systems are reviewed and are negative COUNT INCLUDES THE [facility] Past Medical History Attestation statement: The following information was validated with the patient. Source: old records reviewed Medical History (Updated 04/29/21 @ 23:43 by Rajani Hoyt NP) Anxiety COVID-19 vaccine administered Depression Hiatal hernia History of Lyme disease Obesity (BMI 30-39.9) Sleep apnea Surgical History (Updated 04/29/21 @ 23:43 by Rajani Hoyt NP) H/O wisdom tooth extraction History of repair of hiatal hernia S/P laparoscopic sleeve gastrectomy Family History Family History Father HTN (hypertension) Sleep apnea Obese Mother Multiple sclerosis RA (rheumatoid arthritis) Brother No problems noted. Maternal Grandmother H/O lymph node biopsy Social History Social History Household Members: Other Household Members Other:: roommate Are you a primary primary care pediatrician to a significant other at home: No Do you presently have visiting nurse or other home services: No Alcohol intake: current Alcohol intake frequency: holidays/special occasions only Patient Tobacco Use Status: Former Tobacco user Quit Date: 03/10/21 Tobacco use type: Cigarette Years Smoked: 4 Substance Use Type: Marijuana Advance Directives: No Patient : No service: No Current occupational status: employed Physical Exam Vital Signs: Vital Signs: Last Vital Signs Temp 98.1 F 04/29/21 20:16 Pulse 84 04/29/21 20:40 Resp 18 04/29/21 20:40 BP 106/84 04/29/21 20:40 Pulse Ox 98 04/29/21 20:40 Body Mass Index 33.6 Appearance: Alert. Oriented X3. No acute distress. Eyes: Pupils equal, round and reactive to light. ENT: Pharynx normal. Neck: Normal inspection. Neck supple. CVS: Normal heart rate and rhythm. Pulses normal. Respiratory: No respiratory distress. Breath sounds normal. Abdomen: Soft and nontender. Skin: Skin warm and dry. Normal skin color. Normal skin turgor. Extremities: No lower extremity edema. Neuro: No motor deficit. No sensory deficit. Cranial nerves 2-12 intact. Course Course Course Narrative: 21-year-old female status post gastric sleeve on 05/[address] Verdin presents with suspected seizure. Has had history of seizure in the past states that seizures occur when she has dehydration and usually after smoking marijuana. Detailed discussion with patient and patient's family regarding seizure, as this is a recurrent seizure she should be evaluated by Neurology, and is not on any seizure medications at this time. She was advised that she should not be driving until she is seizure-free for 6 months. Patient's family also has concerns because patient has not been taking in adequate p.o. intake, as patient reports that she did receive an accurate discharge instructions from gastric sleeve procedure. Family is concerned about electrolyte imbalance at this time. Patient does not appear to be postictal, does not report any loss of bowel or bladder continence. Lab values indicate a white count of 13.3, possibly due to postsurgical healing, patient is afebrile, and has no indication of infection or sepsis. Chemistries are normal. Will refer to Neurology, mother stated that patient does not live in this area, and that she just returned home for gastric sleeve procedure and that patient lives in [place]. Patient was encouraged to follow up with her primary care provider to find a neurologist within her area of residence. Multiple discussions with patient, patient and patient's family do not appear to be satisfied with care. MDM - Seizure Differential Diagnosis Differential diagnosis: Likely generalized seizure Medical Records Attestation: I reviewed the patient's medical records. Lab Data Attestation: I reviewed the patient's lab results. Result diagrams: 04/29/21 22:45 04/29/21 22:45 Labs: Lab Results 04/29/21 04/29/21 Range/Units 22:45 22:45 WBC 13.8 H (4.8-10.8) X10*3/uL RBC 3.97 L (4.20-5.50) X10*6/uL Hgb 12.0 (12.0-16.0) g/dl Hct 34.7 L (37-47) % MCV 87.4 (80-98) fL MCH 30.2 (27.0-33.0) pg MCHC 34.6 (31.0-35.0) g/dl RDW 12.5 (11.0-16.0) % Plt Count 267 (160-400) X10*3/uL MPV 11.4 (9.4-12.3) fL Immature Gran % (Auto) 0.4 (0.0-0.4) % Neut % (Auto) 86.3 H (45-73) % Lymph % (Auto) 7.0 L (20-40) % Mineral % (Auto) 5.5 (2-11) % Eos % (Auto) 0.4 (0-4) % Baso % (Auto) 0.4 (0-2) % Lymph # (Auto) 1.0 L (1.2-4.9) X10*3/uL Mineral # (Auto) 0.8 (0.1-1.2) X10*3/uL Eos # (Auto) 0.1 (0.0-0.4) X10*3/uL Baso # (Auto) 0.1 (0.0-0.2) X10*3/uL Abs Immat Gran (auto) 0.05 H (0.00-0.03) X10*3/uL Absolute Neuts (auto) 12.0 H (2.0-8.3) X10*3/uL Absolute Nucleated RBC 0.000 (0.0-0.012) X10*3/uL Nucleated RBC % (auto) 0.0 (0.0-0.2) /100WBC Sodium 141 (135-145) mmol/L Potassium 4.1 (3.3-5.1) mmol/L Chloride 107 (96-108) mmol/L Carbon Dioxide 22 (22-29) mmol/L Anion Gap 16 (12-20) BUN 17 H D (9-16) mg/dL Creatinine 0.65 (0.5-1.4) mg/dL Estim Creat Clear Calc 162.8 Estimated GFR > 60 Random Glucose 83 (60-115) mg/dL Calcium 9.2 (8.4-10.2) mg/dL Discharge Plan Discharge Clinical Impression: S/P laparoscopic sleeve gastrectomy, Generalized seizure Patient Disposition: Home, Self-Care Instructions: Nonepileptic Seizures (ED), Recurrent Seizures in Adults (ED) Additional Instructions: You were evaluated in the emergency department for suspected seizure. Follow-up with neurology. I referred you to neurology at [facility]. Please contact your primary care physician for referral in the area that you live in. Please follow-up with Dr. Verdin as scheduled. Do not drive until you find the etiology of seizures and are seizure-free for 6 months. I did give you a handout from the [employer] regarding [place] state laws regarding driving after seizure. Thank you for choosing this emergency department for evaluation. Please follow-up with primary care physician as needed. Return to the emergency department for any new, concerning, or worsening symptoms. Prescriptions: No Action acetaminophen [Tylenol Extra Strength] 500 mg tablet 1,000 mg PO Q6H PRN (Reason: pain) Qty: 30 RF: 1 docusate sodium [Colace] 100 mg capsule 100 mg PO BID Qty: 30 RF: 1 famotidine [Pepcid AC] 20 mg tablet 20 mg PO DAILY Qty: 30 RF: 1 ondansetron HCl [Zofran] 4 mg tablet 4 mg PO Q6H PRN (Reason: nausea and vomiting) Qty: 30 RF: 1 simethicone [Gas Relief (simethicone)] 80 mg tablet,chewable 80 mg PO TID-QID PRN (Reason: abdominal distention) Qty: 30 RF: 1 cranberry 500 mg Capsule 500 mg PO BID RF: 0 biotin 5,000 mcg Tablet, Sublingual 5,000 mcg SUBLINGUAL DAILY RF: 0 magnesium 1 tab PO DAILY RF: 0 drospirenone-ethinyl estradiol 3-0.02 mg tablet 1 tab PO DAILY RF: 0 Hold Instructions: Resume on 05/06/21. bupropion HCl 150 mg tablet extended release 24 hr 150 mg PO QAM RF: 0 Referrals: Layla Landers MD [Physician] - 2 days (Suspected seizure) Interventions: ED Discharge Assessment Last Done: 04/30/21 00:33 Discharge Date/Time: 04/30/21 00:33
[2021-04-29] MEDS: 0.9 % Sodium Chloride 1,000 ML 999 ML IVCONT (22:11)
[2021-04-29 22:50] LABS: MANUAL DIFF FLAG NO
[2021-04-29 22:52] LABS: Basophils Absolute Auto 0.1 X10*3/uL (0.0-0.2); Basophils Percent Auto 0.4 % (0-2); Eosinophils Absolute Auto 0.1 X10*3/uL (0.0-0.4); Eosinophils Percent Auto 0.4 % (0-4); Hematocrit 34.7 % (37-47); Imm Gran Abs Auto 0.05 X10*3/uL (0.00-0.03); Imm Gran Pct Auto 0.4 % (0.0-0.4); Mean Corpuscular HGB Conc 34.6 g/dl (31.0-35.0); Mean Corpuscular Hemoglobin 30.2 pg (27.0-33.0); Mean Corpuscular Volume 87.4 fL (80-98); Mean Platelet Volume 11.4 fL (9.4-12.3); Monocytes Absolute Auto 0.8 X10*3/uL (0.1-1.2); Monocytes Percent Auto 5.5 % (2-11); Neutrophils Percent Auto 86.3 % (45-73); Platelet Count 267 X10*3/uL (160-400); Red Blood Count 3.97 X10*6/uL (4.20-5.50); Red Cell Distribution Width 12.5 % (11.0-16.0); White Blood Count 13.8 X10*3/uL (4.8-10.8)
[2021-04-29 23:31] LABS: Anion Gap 16 (12-20); Blood Urea Nitrogen 17 mg/dL (9-16); Calcium 9.2 mg/dL (8.4-10.2); Carbon Dioxide 22 mmol/L (22-29); Chloride 107 mmol/L (96-108); Creatinine Clr Calc Pharmacy 162.8; Estimated Glomerular Filt Rate > 60; Glucose Random 83 mg/dL (60-115); Potassium 4.1 mmol/L (3.3-5.1); Sodium 141 mmol/L (135-145)
== END 2021-04-30 00:33 | disposition home or self-care (01) ==
PROVIDERS: Emergency Medicine; Emergency Provider Emergency Medicine; PCP Pediatrics
DX: G40.89 Other seizures (principal); Z98.84 Bariatric surgery status
CPT/HCPCS: 36415; 80048; 85025; 96360; 96361; 99284

== ENCOUNTER → 2021-05-05 14:26 | Outpatient (BNVA) | payer OTHER, SELFPAY | PROVIDERS: PCP Pediatrics; Visit Provider Surgery ==

== ENCOUNTER → 2021-05-31 10:53 | Outpatient (BNVA) | payer OTHER, SELFPAY | PROVIDERS: PCP Pediatrics; Visit Provider Surgery ==

== ENCOUNTER → 2021-06-24 08:10 | Outpatient (BNVA) | payer OTHER, SELFPAY | PROVIDERS: PCP Pediatrics; Visit Provider Dietitian, Registered | DX: E66.3 Overweight (principal); Z68.29 Body mass index [BMI] 29.0-29.9, adult | CPT/HCPCS: 97803 ==

== ENCOUNTER → 2021-07-15 09:02 | Outpatient (BNVA) | payer OTHER, SELFPAY | PROVIDERS: PCP Pediatrics; Visit Provider Physician Assistant Surgical ==

== ENCOUNTER → 2021-08-10 10:39 | Outpatient (BNVA) | payer OTHER, SELFPAY | PROVIDERS: PCP Pediatrics; Visit Provider Surgery ==

== ENCOUNTER → 2021-10-18 08:08 | Outpatient (BNVA) | payer OTHER, SELFPAY | PROVIDERS: PCP Pediatrics; Visit Provider Physician Assistant Surgical ==

== ENCOUNTER → 2021-10-26 08:14 | Outpatient (BNVA) | payer OTHER, SELFPAY | PROVIDERS: PCP Pediatrics; Visit Provider Physician Assistant Surgical ==

== ENCOUNTER → 2021-11-17 08:21 | Outpatient (BNVA) | payer OTHER, SELFPAY | PROVIDERS: PCP Pediatrics; Visit Provider Dietitian, Registered | DX: E66.9 Obesity, unspecified (principal); Z68.23 Body mass index [BMI] 23.0-23.9, adult; Z98.84 Bariatric surgery status; Z71.3 Dietary counseling and surveillance | CPT/HCPCS: 97803 ==

== ENCOUNTER 2021-11-21 13:41 | Outpatient (REF) | payer OTHER, SELFPAY ==
[2021-11-21 14:35] LABS: MANUAL DIFF FLAG NO
[2021-11-21 14:41] LABS: Basophils Absolute Auto 0.1 X10*3/uL (0.0-0.2); Eosinophils Absolute Auto 0.5 X10*3/uL (0.0-0.4); Eosinophils Percent Auto 8.2 % (0-4); Hematocrit 41.6 % (37.0-47.0); Hemoglobin 13.7 g/dl (12.0-16.0); Imm Gran Abs Auto 0.01 X10*3/uL (0.00-0.03); Imm Gran Pct Auto 0.2 % (0.0-0.4); Lymphocytes Absolute Auto 1.9 X10*3/uL (1.2-4.9); Lymphocytes Percent Auto 31.4 % (20-40); Mean Corpuscular HGB Conc 32.9 g/dl (31.0-35.0); Mean Corpuscular Hemoglobin 29.7 pg (27.0-33.0); Mean Corpuscular Volume 90.2 fL (80.0-98.0); Monocytes Absolute Auto 0.4 X10*3/uL (0.1-1.2); Monocytes Percent Auto 6.5 % (2-11); Neutrophils Absolute Auto 3.2 x10*3/uL (2.0-8.3); Neutrophils Percent Auto 52.7 % (45-73); Platelet Count 190 X10*3/uL (160-400); Red Blood Count 4.61 X10*6/uL (4.20-5.50); Red Cell Distribution Width 13.2 % (11.0-16.0)
[2021-11-21 14:51] LABS: Estimated Average Glucose 100 mg/dL; Hemoglobin A1c % 5.1 %
[2021-11-21 15:08] LABS: Anion Gap 13 (12-20); Blood Urea Nitrogen 15 mg/dL (9-16); C Reactive Protein 0.03 mg/dL (< or = 0.50); Calcium 10.2 mg/dL (8.4-10.2); Carbon Dioxide 28 mmol/L (22-29); Chloride 105 mmol/L (96-108); Cholesterol 172 mg/dL; Estimated Glomerular Filt Rate > 60; Glucose Random 79 mg/dL (60-115); HDL Cholesterol 60 mg/dL; Iron 116 mcg/dL (30-160); LDL Cholesterol Calculated 94 mg/dl; Potassium 4.4 mmol/L (3.3-5.1); Sodium 142 mmol/L (135-145); Triglycerides 90 mg/dL
[2021-11-21 15:20] LABS: Percent Iron Saturation 30 % (15-50); Total Iron Binding Capacity 390 mcg/dL (228-428); Unsaturated Iron Binding 274 ug/dL
[2021-11-21 15:41] LABS: Folate 5.1 ng/mL (> or = 4.0); Vitamin B12 489 pg/mL (200-900)
[2021-11-21 16:12] LABS: Ferritin 52 ng/mL (10-122); TSH reflex Free T4 1.06 uIU/mL (0.32-4.0); Vitamin D 25-OH Total 29.7 ng/mL (>30)
[2021-11-22 13:57] LABS: Calcium (PTHI) 9.7 mg/dL (8.6-10.2); PTHI 31 pg/mL (14-64)
[2021-11-24 15:26] LABS: Zinc 75 mcg/dL (60-130)
[2021-11-25 20:50] LABS: Vitamin A 46 mcg/dL (38-98)
[2021-11-26 11:26] LABS: Vitamin B1 13 nmol/L (8-30)
== END 2021-11-21 13:42 | disposition home or self-care (01) ==
LOC: HO.LAB 13:41
PROVIDERS: PCP Pediatrics; Visit Provider Physician Assistant Surgical
DX: Z98.84 Bariatric surgery status (principal)
CPT/HCPCS: 36415; 80048; 80061; 82306; 82607; 82728; 82746; 83036; 83540; 83970; 84425; 84443; 84590; 84630; 85025; 86140

== ENCOUNTER → 2022-01-04 08:10 | Outpatient (BNVA) | payer OTHER, SELFPAY | PROVIDERS: PCP Pediatrics; Visit Provider Physician Assistant Surgical | DX: Z13.89 Encounter for screening for other disorder (principal) ==

== ENCOUNTER → 2022-02-14 08:09 | Outpatient (BNVA) | payer OTHER, SELFPAY | PROVIDERS: PCP Pediatrics; Visit Provider Dietitian, Registered | DX: Z48.815 Encounter for surgical aftercare following surgery on the digestive system (principal); Z98.84 Bariatric surgery status | CPT/HCPCS: 97803 ==

== ENCOUNTER 2023-11-26 09:25 | Outpatient (AMB) | payer OTHER, SELFPAY ==
--- NOTE | 2023-11-26 09:26 | MHC.OFFVISWM ---
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 Presents for 2 year, 7 month post op visit. Weight at last visit on 05/22/22 was 147 pounds with a BMI of 23, weight today is 172.6 pounds, with a BMI today of 27. No complaints of nausea, emesis, abdominal pain or reflux. Reports infrequent but normal bowel movements every 1-2 days and uses stool softeners regularly. She states that she has returned from the [place] the [facility]. She did have an unexpected in June although this was electively aborted. She states that she has had difficulty with fatigue ever since surgery. She did experience hyperemesis gravidarum during her which has since resolved. She was also found to have low B6 vitamin around the time of her which was replaced although she has not consistently taken vitamins. Present meal plan includes: no meal plan 48-64 oz water ? Exercise routine includes: none. PF gym membership [facility] Medical History Anxiety COVID-19 vaccine administered Depression Hiatal hernia History of Lyme disease History of seizure Obesity (BMI 30-39.9) Sleep apnea Surgical History H/O wisdom tooth extraction History of repair of hiatal hernia S/P laparoscopic sleeve gastrectomy Family History Father HTN (hypertension) Sleep apnea Obese Mother Multiple sclerosis RA (rheumatoid arthritis) Brother No problems noted. Maternal Grandmother H/O lymph node biopsy Social History Household Members: Other Household Members Other:: roommate Are you a primary critical care cns to a significant other at home: No Do you presently have visiting nurse or other home services: No Alcohol intake: current Alcohol intake frequency: a few times a month Patient Tobacco Use Status: Former Tobacco user Quit Date: 03/10/21 Tobacco use type: Cigarette Years Smoked: 4 Substance Use Type: Marijuana service: No Current occupational status: employed Review of Systems Const All systems reviewed & are unremarkable except as noted in HPI and below Physical Exam Const General: healthy appearing and no acute distress Resp Effort & Inspection: normal respiratory effort Auscultation: clear to auscultation bilaterally Cardio Rate: regular rate Rhythm: regular rhythm GI Auscultation: normal bowel sounds Extrem General: Yes normal to inspection Assessment & Plan Assessment & Plan (1) S/P laparoscopic sleeve gastrectomy: Comment: 2020 Code(s): Z98.84 - Bariatric surgery status Plan: Patient will start with a new meal plan consisting of: To eggs with sought aid spinach or Kale 1/2 ready to drink pure protein shake, (6 oz with 6 oz of unsweetened soy milk) The other half of the protein shake Meal with 7 forks of protein and 7 of vegetables Half cup fresh berries. Increase fluids to 64 oz daily. Return to the gym with a goal of cardio, 300 calories burned daily. Check yearly labs. Patient was given bariatric multivitamin Orders: Orders Insulin Today Z - Bariatric surgery status Vitamin A Today Z98.84 - Bariatric surgery status TSH reflex Free T4 Today Z.84 - Bariatric surgery status Ferritin Today Z.84 - Bariatric surgery status Vitamin D 25-OH Total Today Z.84 - Bariatric surgery status Basic Metabolic Panel Today Z84 - Bariatric surgery status Hemoglobin A1c Today Z98.84 - Bariatric surgery status Complete Blood Count Auto Diff Today Z.84 - Bariatric surgery status Lipid Panel Today Z.84 - Bariatric surgery status IRON PROFILE Today Z.84 - Bariatric surgery status Vitamin B12 and Folate Today Z98.84 - Bariatric surgery status Zinc Today Z98.84 - Bariatric surgery status C Reactive Protein Today Z98.84 - Bariatric surgery status Vitamin B1 Today Z98.84 - Bariatric surgery status Coding Level of Care Code Est Pt Level 4 (21745) Diagnoses S/P laparoscopic sleeve gastrectomy Z98.84 Time Spent (min) 40
[2023-11-26 09:36] VITALS: BP 103/58; PULSE 99; TEMP 36; O2SAT 98; BMI 27.0
== END 2023-11-26 10:10 | disposition home or self-care (01) ==
PROVIDERS: PCP Pediatrics; Visit Provider Physician Assistant Surgical
DX: E66.3 Overweight (principal); Z68.27 Body mass index [BMI] 27.0-27.9, adult; Z90.3 Acquired absence of stomach [part of]; Z98.84 Bariatric surgery status
CPT/HCPCS: 99214

== ENCOUNTER 2023-11-26 09:25 | Outpatient (REF) | payer OTHER, SELFPAY ==
[2023-11-26 12:04] LABS: MANUAL DIFF FLAG NO
[2023-11-26 12:59] LABS: Basophils Absolute Auto 0.1 X10*3/uL (0.0-0.2); Basophils Percent Auto 1.4 % (0-2); Eosinophils Absolute Auto 0.2 X10*3/uL (0.0-0.4); Eosinophils Percent Auto 5.4 % (0-4); Hematocrit 36.2 % (37.0-47.0); Hemoglobin 11.7 g/dl (12.0-16.0); Imm Gran Abs Auto 0.01 X10*3/uL (0.00-0.03); Imm Gran Pct Auto 0.3 % (0.0-0.4); Lymphocytes Absolute Auto 0.8 X10*3/uL (1.2-4.9); Lymphocytes Percent Auto 23.4 % (20-40); Mean Corpuscular HGB Conc 32.3 g/dl (31.0-35.0); Mean Corpuscular Volume 83.4 fL (80.0-98.0); Mean Platelet Volume 11.4 fL (9.4-12.3); Monocytes Absolute Auto 0.4 X10*3/uL (0.1-1.2); Monocytes Percent Auto 11.7 % (2-11); Neutrophils Percent Auto 57.8 % (45-73); Platelet Count 203 X10*3/uL (160-400); Red Blood Count 4.34 X10*6/uL (4.20-5.50); Red Cell Distribution Width 13.7 % (11.0-16.0); White Blood Count 3.5 X10*3/uL (4.8-10.8)
[2023-11-26 13:05] LABS: Estimated Average Glucose 100 mg/dL; Hemoglobin A1c % 5.1 % (<6.0)
[2023-11-26 13:48] LABS: Anion Gap 10 (12-20); Blood Urea Nitrogen 13 mg/dL (9-16); C Reactive Protein < 0.10 mg/dL (< or = 0.50); Calcium 9.1 mg/dL (8.4-10.2); Carbon Dioxide 26 mmol/L (22-29); Chloride 107 mmol/L (96-108); Cholesterol 171 mg/dL (<200); Estimated Glomerular Filt Rate > 60; Glucose Random 85 mg/dL (60-115); HDL Cholesterol 70 mg/dL (>40); Iron 71 mcg/dL (30-160); LDL Cholesterol Calculated 91 mg/dL (<100); Percent Iron Saturation 17 % (15-50); Potassium 3.9 mmol/L (3.3-5.1); Sodium 139 mmol/L (135-145); Total Iron Binding Capacity 429 mcg/dL (228-428); Triglycerides 54 mg/dL (<150); Unsaturated Iron Binding 358 ug/dL
[2023-11-26 14:09] LABS: Folate 6.1 ng/mL (> or = 4.0); Vitamin B12 413 pg/mL (200-900)
[2023-11-26 14:10] LABS: Ferritin 9 ng/mL (10-122); Insulin 9 uU/mL (2-29); TSH reflex Free T4 0.69 uIU/mL (0.32-4.0); Vitamin D 25-OH Total 12.9 ng/mL (>30)
[2023-11-29 02:48] LABS: Zinc 82 mcg/dL (60-130)
[2023-11-29 21:49] LABS: Vitamin A 37 mcg/dL (38-98)
[2023-12-01 07:14] LABS: Vitamin B1 15 nmol/L (8-30)
== END 2023-11-26 09:26 | disposition home or self-care (01) ==
LOC: HO.LAB 09:25
PROVIDERS: PCP Pediatrics; Visit Provider Physician Assistant Surgical
DX: Z98.84 Bariatric surgery status (principal); Z13.6 Encounter for screening for cardiovascular disorders; F41.1 Generalized anxiety disorder
CPT/HCPCS: 36415; 80048; 80061; 82306; 82607; 82728; 82746; 83036; 83525; 83540; 84425; 84443; 84590; 84630; 85025; 86140

== ENCOUNTER 2023-12-26 09:30 | Outpatient (AMB) | payer OTHER, SELFPAY ==
--- NOTE | 2023-12-26 09:28 | MHC.OFFVISWM ---
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 Presents for 2 year, 9 month post op visit. Weight today is 169.4 pounds, with a BMI today of 26.5. No complaints of nausea, emesis, abdominal pain or reflux. Reports infrequent but normal bowel movements every 1-2 days and uses stool softeners regularly. She states that she has returned from the [place] part of the [facility]. She did have an unexpected in June although this was electively aborted. She states that she has had difficulty with fatigue ever since surgery. She did experience hyperemesis gravidarum during her which has since resolved. She was also found to have low B6 vitamin around the time of her which was replaced although she has not consistently taken vitamins. She states she has been trying to stick with the plan, has to change the schedule based on her work schedule. She states she feels much better than a month ago. Present meal plan includes: 2 eggs with spinach or Kale 1/2 ready to drink pure protein shake, (6 oz with 6 oz of unsweetened soy milk) The other half of the protein shake Meal with 7 forks of protein and 7 of vegetables Half cup fresh berries. Drinking 60 oz water Exercise routine includes: PF gym membership, 2 x per week, elliptical (30 minutes) and weights PENDING SALE TO [facility] Medical History Anxiety COVID-19 vaccine administered Depression Hiatal hernia History of Lyme disease History of seizure Obesity (BMI 30-39.9) Sleep apnea Surgical History H/O wisdom tooth extraction History of repair of hiatal hernia S/P laparoscopic sleeve gastrectomy Family History Father HTN (hypertension) Sleep apnea Obese Mother Multiple sclerosis RA (rheumatoid arthritis) Brother No problems noted. Maternal Grandmother H/O lymph node biopsy Social History Household Members: Other Household Members Other:: roommate Are you a primary intensive care nurse to a significant other at home: No Do you presently have visiting nurse or other home services: No Alcohol intake: current Alcohol intake frequency: a few times a month Patient Tobacco Use Status: Former Tobacco user Quit Date: 03/10/21 Tobacco use type: Cigarette Years Smoked: 4 Substance Use Type: Marijuana service: No Current occupational status: employed Assessment & Plan Assessment & Plan (1) S/P laparoscopic sleeve gastrectomy: Comment: 2020 Code(s): Z98.84 - Bariatric surgery status Plan Patient has made excellent progress. She is feeling significantly better with a structured meal plan. She is exercising as much as she is able based on her current work requirements. She will return to the office for her 3 year follow-up in late March with the understanding that she will text with any questions or concerns sooner. This is her request. Continue current plans. Telehealth Telehealth Location of provider rendering services: practice address Location of patient: address on file Patient Identification confirmed using: Name, : Yes Telehealth method: voice only Patient verbally consented to treatment: Yes Patient verbally consented to billing insurance company: Yes Patient informed of any privacy concerns related to visit: Yes Minutes spent on Phone/Video with Pt.: 15 Coding Level of Care Code Tele Est Pt Level 3 (73294) Diagnoses S/P laparoscopic sleeve gastrectomy Z98.84 Time Spent (min) 20
[2023-12-26 09:29] VITALS: BMI 26.5
== END 2023-12-26 09:47 | disposition home or self-care (01) ==
LOC: HO.HBS 09:44
PROVIDERS: PCP Pediatrics; Visit Provider Physician Assistant Surgical
DX: E66.3 Overweight (principal); Z68.26 Body mass index [BMI] 26.0-26.9, adult; Z90.3 Acquired absence of stomach [part of]; Z98.84 Bariatric surgery status
CPT/HCPCS: 99442

== ENCOUNTER → 2023-12-26 09:30 | Outpatient (BNVA) | payer OTHER, SELFPAY | PROVIDERS: PCP Pediatrics; Visit Provider Physician Assistant Surgical ==

== ENCOUNTER 2025-03-01 08:24 | Emergency (ER) | payer SELFPAY ==
--- NOTE | ~2025-03-01 | CT_ITS ---
CLINICAL HISTORY: Abd pain, gx of gastric sleeve CT abdomen and pelvis with IV contrast. COMPARISON: None FINDINGS: Partially visualized lung bases are unremarkable. Liver is enlarged with right lobe measuring 23.0 cm. No focal hepatic lesion. Normal gallbladder. Normal spleen. Normal pancreas. Normal adrenal glands. Symmetric renal enhancement. No hydronephrosis. Suture material present along the greater curvature of the stomach. No bowel obstruction. Visualized portions of the appendix are normal in caliber. No periappendiceal or pericecal inflammatory changes. No mesenteric or retroperitoneal lymphadenopathy. Normal abdominal aorta. Urinary bladder is unremarkable given degree of distention. Small amount of free fluid present within the posterior cul-de-sac and anterior to the uterus, likely physiologic. No adnexal mass. No acute fracture or suspicious bone lesion. IMPRESSION: 1. No cause for patient's symptoms identified. No evidence of appendicitis. No bowel obstruction. 2. Small amount of free fluid present along the posterior cul-de-sac and anterior to the uterus, likely physiologic. Consider pelvic ultrasound for further characterization 3. Hepatomegaly. This document has been electronically signed by: Amaury Hendrickson MD on 03/01/2025 13:07:06
[2025-03-01 08:26] VITALS: BP 101/71; PULSE 83; RESP 18; TEMP 36.1; O2SAT 98; BMI 27.1
[2025-03-01 08:55] LABS: MANUAL DIFF FLAG NO
[2025-03-01 08:57] LABS: Basophils Percent Auto 0.7 % (0-2); Eosinophils Percent Auto 0.7 % (0-4); Hematocrit 36.2 % (37.0-47.0); Hemoglobin 11.4 g/dl (12.0-16.0); Imm Gran Abs Auto 0.01 X10*3/uL (0.00-0.03); Imm Gran Pct Auto 0.2 % (0.0-0.4); Lymphocytes Absolute Auto 0.5 X10*3/uL (1.2-4.9); Lymphocytes Percent Auto 11.1 % (20-40); Mean Corpuscular HGB Conc 31.5 g/dl (31.0-35.0); Mean Corpuscular Hemoglobin 23.7 pg (27.0-33.0); Mean Corpuscular Volume 75.3 fL (80.0-98.0); Mean Platelet Volume 11.5 fL (9.4-12.3); Monocytes Absolute Auto 0.3 X10*3/uL (0.1-1.2); Monocytes Percent Auto 7.1 % (2-11); Neutrophils Absolute Auto 3.5 x10*3/uL (2.0-8.3); Neutrophils Percent Auto 80.2 % (45-73); Platelet Count 219 X10*3/uL (160-400); Red Blood Count 4.81 X10*6/uL (4.20-5.50); Red Cell Distribution Width 15.5 % (11.0-16.0); White Blood Count 4.3 X10*3/uL (4.8-10.8)
[2025-03-01 09:17] LABS: Anion Gap 10 (12-20); Blood Urea Nitrogen 8 mg/dL (9-16); Calcium 9.5 mg/dL (8.4-10.2); Carbon Dioxide 25 mmol/L (22-29); Chloride 109 mmol/L (96-108); Creatinine Clr Calc Pharmacy 158.6; Estimated Glomerular Filt Rate > 60; Glucose Random 107 mg/dL (60-115); Potassium 3.6 mmol/L (3.3-5.1); Sodium 140 mmol/L (135-145)
[2025-03-01 10:17] VITALS: BP 105/66; PULSE 65; RESP 16; TEMP 36.8; O2SAT 98
--- NOTE | 2025-03-01 10:21 | ED.NAVMDI ---
HPI - Nausea/Vomiting/Diarrhea General Chief complaint: Nausea/Vomiting/Diarrhea Stated complaint: vomitting Time Seen by Provider: 03/01/25 10:08 Source: patient and RN notes reviewed Mode of arrival: ambulatory Limitations: no limitations History of Present Illness ED Provider: Sharon Moore PA-C HPI Narrative: This is a 24-year-old female, with a past medical history of gastric sleeve 3 years ago, who presents emergency department with concerns of nausea, vomiting, and diarrhea for the last 24 hours. Patient reports that 2 nights ago she ate at a [address] restaurant, and had a grilled cheese with beef. She states that later on that evening she developed nausea. She states that all day yesterday she had episodes of nausea and vomiting. She states that she took Tums yesterday without any relief. She states that this morning she has had 3 episodes of vomiting. She states that she also has had multiple episodes of diarrhea. No bloody or black stool. No hemoptysis. Denies any sick contacts. reports chills, no fevers. she denies any urinary frequency, urgency, dysuria, or hematuria. She reports that she is sexually active, reports low risk of . No other complaints or concerns at this time MD elicited complaint: nausea, vomiting and diarrhea Onset (ago): day(s) Description of vomiting: food contents Associated nausea: Yes Location of pain: none Pain consistency: constant Severity: moderate Quality: aching Exacerbating factors: eating Relieving factors: none Context: possible food poisoning Associated symptoms: denies other symptoms Related Data Home Medications ?Medication ?Instructions ?Recorded ?Confirmed lamotrigine 100 mg tablet 100 mg PO DAILY 11/26/23 12/26/23 (Lamictal) methylphenidate HCl 18 mg 36 mg PO DAILY 11/26/23 12/26/23 tablet,extended release 24 hr (Concerta) Previous Rx's ?Medication ?Instructions ?Recorded cholecalciferol (vitamin D3) 125 125 mcg PO DAILY 90 days #90 tabs 11/26/23 mcg (5,000 unit) tablet ondansetron 4 mg disintegrating 4 mg PO Q6H PRN nausea and 03/01/25 tablet vomiting #12 tabs Allergies Allergy/AdvReac Type Severity Reaction Status Date / Time No Known Allergies Allergy Verified 03/01/25 08:28 Review of Systems Review of Systems: Yes all other systems are reviewed and are negative Constitutional: Constitutional: Reports as per HPI Gastrointestinal: Gastrointestinal: Reports nausea PMFSH Past Medical History Attestation statement: The following information was validated with the patient. Medical History History of seizure Hiatal hernia COVID-19 vaccine administered Obesity (BMI 30-39.9) History of Lyme disease Sleep apnea Anxiety Depression Surgical History S/P laparoscopic sleeve gastrectomy History of repair of hiatal hernia H/O wisdom tooth extraction Family History Family History Father HTN (hypertension) Sleep apnea Obese Mother Multiple sclerosis RA (rheumatoid arthritis) Brother No problems noted. Maternal Grandmother H/O lymph node biopsy Social History Social History Household Members: Other Household Members Other:: roommate Are you a primary life care planner to a significant other at home: No Do you presently have visiting nurse or other home services: No Alcohol intake: current Alcohol intake frequency: a few times a month Patient Tobacco Use Status: Former Tobacco user Tobacco use type: Cigarette Years Smoked: 4 Substance Use Type: Marijuana service: No Current occupational status: employed Physical Exam Vital Signs: Vital Signs: Last Vital Signs Temp 98.1 F 03/01/25 15:41 Pulse 69 03/01/25 15:41 Resp 18 03/01/25 15:41 BP 101/59 L 03/01/25 15:41 Pulse Ox 97 03/01/25 15:41 O2 Del Method Room Air 03/01/25 15:41 BMI result Body Mass Index 27.1 Const: General: cooperative, comfortable and no acute distress Orientation/consciousness: patient oriented x3 Limitations: no limitations HEENT: Head: Yes normal to inspection, Yes normocephalic and Yes atraumatic Ears: hearing grossly normal bilaterally General nose exam: Normal external nose present Face and sinus: Yes normal facial exam Mouth: Normal oral and palatal mucosa present, oropharynx normal and moist mucous membranes Throat: Yes posterior oropharynx normal Eyes: General: appearance normal, both eyes and all related structures Eyelids: Yes eyelids normal Conjunctivae: conjunctivae normal Sclerae: sclerae normal Pupils: Equal, round and reactive pupils present EOM: EOMs intact bilaterally Neck: Neck: Yes normal visual inspection, Yes full ROM and Yes no lymphadenopathy Lymphatic: no lymphadenopathy noted Chest: Chest palpation & inspection: normal inspection of the chest Resp: Effort & Inspection: normal respiratory effort and able to speak in complete sentences Auscultation: clear to auscultation bilaterally, no crackles, no rales, no rhonchi and no wheezes Cardio: Rate: regular rate Rhythm: regular rhythm Heart sounds: S1 normal heart sound present and S2 normal heart sound present GI: Other: abdomen is soft, with mild tenderness in the epigastrium, no rebound or guarding. No right upper quadrant pain. No right lower left lower quadrant tenderness. No suprapubic tenderness on examination. Inspection: Yes normal to inspection Skin: General skin exam: no rashes or lesions noted Trauma: no lacerations or abrasions Wounds: no wounds Neuro: General: patient oriented x3 and moves all extremities Cranial nerves: Yes Equal, round and reactive pupils present Extrem: General: Yes normal to inspection Right upper extremity: normal to inspection Left upper extremity: normal to inspection Right lower extremity: normal to inspection Left lower extremity: normal to inspection Medications Administered Discontinued Medications Generic Name Dose Route Start Last Admin Trade Name Freq PRN Reason Stop Dose Admin Diphenhydramine HCl 12.5 mg 03/01/25 12:20 03/01/25 12:32 Diphenhydramine Hcl 50 Mg/Ml Vial IVPUSH 03/01/25 12:21 12.5 mg ONCE ONE Administration Lactated Ringer's 1,000 mls @ 999 mls/hr 03/01/25 10:15 03/01/25 11:55 Lr IV 03/01/25 11:15 Infused .Q1H1M ONE Infusion Acetaminophen 1,000 mg in 100 mls @ 400 mls/hr 03/01/25 10:15 03/01/25 11:55 Ofirmev IV 03/01/25 10:29 Infused ONCE ONE Infusion Lactated Ringer's 1,000 mls @ 999 mls/hr 03/01/25 11:16 03/01/25 11:55 Lr IV 03/01/25 12:16 Infused .Q1H1M ONE Infusion Iohexol 100 ml 03/01/25 12:49 03/01/25 12:50 Iohexol 350 Mg/Ml 100 Ml Infus..Btl IV 03/01/25 12:50 85 ml ONCE ONE Administration Ondansetron HCl 4 mg 03/01/25 10:15 03/01/25 10:29 Ondansetron Hcl 4 Mg/2 Ml Vial IVPUSH 03/01/25 10:16 4 mg ONCE ONE Administration Prochlorperazine Edisylate 10 mg 03/01/25 12:20 03/01/25 12:32 Prochlorperazine Edisylate 10 Mg/2 Ml Vial IVPUSH 03/01/25 12:21 10 mg ONCE ONE Administration Medical Decision Making Medical Decision Making MDM Narrative: This is a 24-year-old female who presents emergency department with concerns of nausea and vomiting for the last 24 hours. On arrival, vital signs within normal limits. She is speaking full sentences under no acute distress. She states that she ate a grilled cheese with beef that she believes caused her to have the symptoms. She has been unable to tolerate p.o.. Given her symptoms, will obtain labs to rule out any electrolyte derangement, will also medicate with IV fluids and antiemetics. We will continue to closely monitor. Abdomen is soft, nontender, nondistended. Differential diagnoses include gastritis, gastroenteritis, electrolyte derangement, . Course: 1220 - Patient re-evaluated, still stating that she is still slightly nauseous and having abdominal pain. Will obtain CT abdomen and pelvis to rule out any acute process. Also ordered Benadryl, Compazine. We will continue to closely monitor. labs returned, no leukocytosis seen, she does have a microcytic anemia with an H&H of 11.4/36.2, no significant electrolyte derangement, no evidence of KATELYN. Lipase within normal limits, LFTs within normal limits. Urine does not appear to be infected. 1530 - CAT scan returns, no evidence of any acute abdominal process, she does have free fluid in the pelvis, as well as an enlarged liver, this was discussed with patient. She is feeling much better she is tolerating p.o. without difficulty. She feels comfortable for discharge. She was given strict return precautions. She understands and agrees with plan. Patient stable for discharge Differential Diagnosis Differential Diagnoses: The differential diagnosis associated with the presentation includes See above Admission/Observation Consideration of admission/observation: Escalation of care including admission/observation considered Lab Data [facility] Lab Attestation statement: I reviewed the patient's lab results. see MDM and course 03/01/25 08:51 03/01/25 08:51 Labs: Lab Results 03/01/25 03/01/25 Range/Units 08:51 11:52 WBC 4.3 L (4.8-10.8) X10*3/uL RBC 4.81 (4.20-5.50) X10*6/uL Hgb 11.4 L (12.0-16.0) g/dl Hct 36.2 L (37.0-47.0) % MCV 75.3 L (80.0-98.0) fL MCH 23.7 L (27.0-33.0) pg MCHC 31.5 (31.0-35.0) g/dl RDW 15.5 (11.0-16.0) % Plt Count 219 (160-400) X10*3/uL MPV 11.5 (9.4-12.3) fL Immature Gran % (Auto) 0.2 (0.0-0.4) % Neut % (Auto) 80.2 H (45-73) % Lymph % (Auto) 11.1 L (20-40) % [place] % (Auto) 7.1 (2-11) % Eos % (Auto) 0.7 (0-4) % Baso % (Auto) 0.7 (0-2) % Lymph # (Auto) 0.5 L (1.2-4.9) X10*3/uL [place] # (Auto) 0.3 (0.1-1.2) X10*3/uL Eos # (Auto) 0.0 (0.0-0.4) X10*3/uL Baso # (Auto) 0.0 (0.0-0.2) X10*3/uL Abs Immat Gran (auto) 0.01 (0.00-0.03) X10*3/uL Absolute Neuts (auto) 3.5 (2.0-8.3) x10*3/uL Absolute Nucleated RBC 0.000 (0.0-0.012) X10*3/uL Nucleated RBC % (auto) 0.0 (0.0-0.2) /100WBC Sodium 140 (135-145) mmol/L Potassium 3.6 (3.3-5.1) mmol/L Chloride 109 H (96-108) mmol/L Carbon Dioxide 25 (22-29) mmol/L Anion Gap 10 L (12-20) BUN 8 L (9-16) mg/dL Creatinine 0.60 (0.5-1.4) mg/dL Estim Creat Clear Calc 158.6 Estimated GFR > 60 Random Glucose 107 (60-115) mg/dL Calcium 9.5 (8.4-10.2) mg/dL Magnesium 1.9 (1.6-2.6) mg/dL Total Bilirubin 0.5 (0.0-1.0) mg/dL Direct Bilirubin 0.2 (0.0-0.5) mg/dL AST 25 (5-31) U/L ALT 15 (0-31) U/L Alkaline Phosphatase 60 (39-117) U/L Total Protein 7.0 (6.5-8.0) g/dL Albumin 4.4 (3.5-5.0) g/dL Lipase 15 (8-78) U/L Beta HCG, Quant < 2 mIU/mL Urine Color Yellow Urine Appearance Clear Urine pH 6.0 (5.0-9.0) Ur Specific [place] >= 1.030 H (1.005-1.025) Urine Protein 100 (2+) H (Neg-Trace) mg/dL Urine Glucose (UA) Negative (Negative) mg/dL Urine Ketones 15 (Negative) mg/dL Urine Blood Negative (Negative) Urine Nitrite Negative (Negative) Ur Leukocyte Esterase Negative (Negative) Urine RBC 0-2 (0-2) /HPF Urine WBC 0-5 (0-5) /HPF Ur Squamous Epith Cells 3-5 (0-2) /HPF Urine Bacteria Trace (None Seen) Hyaline Casts 0-2 (0-2) /LPF Radiology Impression Discussion of test interpretation with radiology: I have reviewed the radiologist's reading. Radiologist Impression: [address] [address] [address] Scan Report Signed Patient: Darci Glass MR#: [id number] : 2000 Acct:[id number] Age/Sex: 24 / F ADM Date: 03/01/25 Loc: HO.ED Attending Dr: Ordering Physician: Sharon Hutchinson Date of Service: 03/01/25 Procedure(s): CT abdomen pelvis w IV con Accession Number(s): [id number] cc: Sharon Hutchinson; Physician,None ~ Report Number: [id number]: Total DLP = 632.00 mGy-cm CLINICAL HISTORY: Abd pain, gx of gastric sleeve CT abdomen and pelvis with IV contrast. COMPARISON: None FINDINGS: Partially visualized lung bases are unremarkable. Liver is enlarged with right lobe measuring 23.0 cm. No focal hepatic lesion. Normal gallbladder. Normal spleen. Normal pancreas. Normal adrenal glands. Symmetric renal enhancement. No hydronephrosis. Suture material present along the greater curvature of the stomach. No bowel obstruction. Visualized portions of the appendix are normal in caliber. No periappendiceal or pericecal inflammatory changes. No mesenteric or retroperitoneal lymphadenopathy. Normal abdominal aorta. Urinary bladder is unremarkable given degree of distention. Small amount of free fluid present within the posterior cul-de-sac and anterior to the uterus, likely physiologic. No adnexal mass. No acute fracture or suspicious bone lesion. IMPRESSION: 1. No cause for patient's symptoms identified. No evidence of appendicitis. No bowel obstruction. 2. Small amount of free fluid present along the posterior cul-de-sac and anterior to the uterus, likely physiologic. Consider pelvic ultrasound for further characterization 3. Hepatomegaly. This document has been electronically signed by: Amaury Hendrickson MD on 03/01/2025 13:07:06 Dictated By: Amaury Hendrickson MD Critical Care Time Critical Care Time Critical Care Time: Yes Total Critical Care Time: 31 Attestation: I have personally provided critical care time exclusive of time spent on separately billable procedures. Time includes review of lab data, radiology results, discussion with consultants, and monitoring for potential decompensation. Intervention performed as documented. Discharge Plan Discharge Clinical Impression: Nausea & vomiting Patient Disposition: Home, Self-Care Instructions: Acute Nausea and Vomiting (ED) Additional Instructions: you were seen in the emergency department due to nausea, vomiting, and diarrhea Your blood work was reassuring. Your urine does not appear to be infected. You are not . Please stick to a bland diet over the next several days. Avoid spicy or fried foods. You may take Zofran as needed for nausea and vomiting. Advance your diet as tolerated. If any new or worsening symptoms occur including but not limited to high fevers, significant abdominal pain, inability to tolerate food or drink by mouth, please seek emergent care. You do have a slightly enlarged liver on your CT scan as well as some free fluid in your pelvis, this is nonspecific, and can normal. follow-up with your primary care physician as well as your OBGYN as needed. Prescriptions: New ondansetron 4 mg tablet,disintegrating 4 mg PO Q6H PRN (Reason: nausea and vomiting) Qty: 12 0RF No Action cholecalciferol (vitamin D3) 125 mcg (5,000 unit) tablet 125 mcg PO DAILY 90 Days Qty: 90 1RF methylphenidate HCl [Concerta] 18 mg tablet extended release 24hr 36 mg PO DAILY lamotrigine [Lamictal] 100 mg tablet 100 mg PO DAILY Stand Alone Forms: Work/School Release Interventions: ED Discharge Assessment Last Done: 03/01/25 15:41 Discharge Date/Time: 03/01/25 16:01 Print Language: Maltese
[2025-03-01] MEDS: ondansetron HCL 4 MG/2 ML VIAL IVPUSH (10:29)
[2025-03-01] MEDS: Acetaminophen 1,000 MG/100 ML PIGGYBACK 400 MG IV (10:29)
[2025-03-01] MEDS: Lactated Ringers 1,000 ML 999 ML IV ×2 (10:30→11:42)
[2025-03-01 10:33] LABS: Alanine Aminotransferase 15 U/L (0-31); Albumin Level 4.4 g/dL (3.5-5.0); Alkaline Phosphatase 60 U/L (39-117); Aspartate Amino Transferase 25 U/L (5-31); Bilirubin Direct 0.2 mg/dL (0.0-0.5); Bilirubin Total 0.5 mg/dL (0.0-1.0); HCG Quantitative < 2 mIU/mL; Lipase 15 U/L (8-78); Magnesium 1.9 mg/dL (1.6-2.6)
[2025-03-01 11:58] LABS: Appearance Urine Clear; Color Urine Yellow; Glucose Urine UA Negative (Negative); Leukocyte Esterase Urine Negative (Negative); Nitrite Urine Negative (Negative); Specific Gravity - Urine >= 1.030 (1.005-1.025); UMIC TRIGGER UACC YES; Urine Blood Negative (Negative); Urine Ketones 15 mg/dL (Negative); Urine Protein 100 (2+) mg/dL (Neg-Trace)
[2025-03-01 12:10] LABS: Bacteria Urine Trace (None Seen); Hyaline Casts Urine 0-2 /LPF (0-2); RBC Urine 0-2 /HPF (0-2); WBC Urine 0-5 /HPF (0-5)
[2025-03-01 12:11] VITALS: BP 101/60; PULSE 67; RESP 16; O2SAT 99
[2025-03-01] MEDS: diphenhydrAMINE HCL 50 MG/ML VIAL 12.5 MG IVPUSH (12:32)
[2025-03-01] MEDS: Prochlorperazine Edisylate 10 MG/2 ML VIAL IVPUSH (12:32)
[2025-03-01] MEDS: iohexoL 350 MG/ML 100 ML INFUS..BTL IV (12:50)
[2025-03-01 14:32] VITALS: BP 92/53; PULSE 63; RESP 18; O2SAT 98
[2025-03-01 15:24] VITALS: BP 101/59; PULSE 69; RESP 18; TEMP 36.7; O2SAT 97
[2025-03-01 15:41] VITALS: BP 101/59; PULSE 69; RESP 18; TEMP 36.7; O2SAT 97
== END 2025-03-01 16:01 | disposition home or self-care (01) ==
PROVIDERS: Physician Assistant Medical; Emergency Provider Emergency Medicine
DX: R11.2 Nausea with vomiting, unspecified (principal); Z87.891 Personal history of nicotine dependence; Z98.84 Bariatric surgery status
CPT/HCPCS: 36415; 74177; 80048; 80076; 81001; 83690; 83735; 84702; 85025; 96365; 96366; 96375; 99284; J0131; J0737; J1200; J2405; J7120; Q9967

== ENCOUNTER → 2025-03-01 12:20 | Outpatient (BNV) | payer SELFPAY | PROVIDERS: Emergency Provider Emergency Medicine; Visit Provider Radiology Diagnostic Radiology | DX: R16.0 Hepatomegaly, not elsewhere classified (principal) | CPT/HCPCS: 74177 ==